=== PATIENT | male | born 1965 | race Caucasian/White ===

== ENCOUNTER 2020-10-05 23:08 | Emergency (ER) | payer MEDICAID, OTHER ==
[~2020-10-05] VITALS: Ht 190.5 cm; Wt 99.8 kg
[2020-10-05 23:08] VITALS: BP 130/80
== END 2020-10-06 03:16 | disposition left against medical advice (07) ==
LOC: ER 23:08 → EDBD 23:08 → ER 10-06 03:16
DX: Z53.21 Procedure and treatment not carried out due to patient leaving prior to being seen by health care provider (principal)